=== PATIENT | male | born 1980 | race Caucasian/White ===

== ENCOUNTER 2016-12-16 22:01 | Emergency (ER) | payer OTHER ==
[~2016-12-16] VITALS: Ht 188 cm; Wt 110.0 kg
[2016-12-16 22:23] LABS: BASOPHILS % (AUTO) 0.1 % (0.0-2.0); EOSINOPHILS % (AUTO) 0.5 % (1.0-6.0); HEMATOCRIT 43.6 % (41-53); LYMPHOCYTES % (AUTO) 11.3 % (22.0-44.0); MEAN CORPUSCULAR HEMOGLOBIN 30.8 pg (26.0-34.0); MEAN CORPUSCULAR HGB CONC 32.2 G/dL (31.0-37.0); MEAN CORPUSCULAR VOLUME 96 fL (80-100); MONOCYTES # (AUTO) 0.6 K/uL (0.1-1.0); MONOCYTES % (AUTO) 3.3 % (2.0-9.0); NEUTROPHILS # (AUTO) 14.8 K/uL (1.8-7.7); NEUTROPHILS % (AUTO) 84.8 % (40.0-70.0); PLATELET COUNT (AUTO) 331 K/uL (150-450); RED BLOOD CELL COUNT(AUTO) 4.55 MIL/uL (4.50-5.90); RED CELL DISTRIBUTION WIDTH 13.7 % (11.5-14.5); WHITE BLOOD COUNT (AUTO) 17.4 K/uL (4.5-11.0)
[2016-12-16 22:32] LABS: ANION GAP 13 mmol/L (8-16); CALCIUM, TOTAL 9.6 mg/dL (8.8-10.5); CARBON DIOXIDE 26 mmol/L (22-29); CHLORIDE 98 mmol/L (98-107); CREATININE 1.18 mg/dL (0.60-1.30); GLOMERULAR FILTR. RATE CALC > 60 mL/min (>60); POTASSIUM 3.2 mmol/L (3.5-5.1); SODIUM SERUM 137 mmol/L (136-145); UREA NITROGEN, BLOOD 20 mg/dL (7-18)
[2016-12-16 22:38] LABS: ALANINE AMINOTRANSFERASE 104 U/L (12-78); ALBUMIN 4.7 g/dL (3.4-5.0); ASPARTATE AMINOTRANSFERASE 61 U/L (15-37); BILIRUBIN,TOTAL 0.6 mg/dL (0.1-1.0); TOTAL PROTEIN, SERUM 7.8 g/dL (6.4-8.2)
[2016-12-16] MEDS ORDERED: KETOROLAC TROMETHAMINE 30 MG/ML VIAL IM ONE (23:45)
[2016-12-17 00:01] VITALS: BP 132/79
== END 2016-12-17 00:12 | disposition home or self-care (01) ==
LOC: EMS 22:03
DX: R07.89 Other chest pain (principal); F17.210 Nicotine dependence, cigarettes, uncomplicated; F12.90 Cannabis use, unspecified, uncomplicated
CPT/HCPCS: 36415; 71010; 80053; 80307; 84484; 85025; 93005; 96372; 99285; J1885

== ENCOUNTER 2016-12-17 13:20 | Inpatient (IN) | payer MEDICAID, OTHER ==
[~2016-12-17] VITALS: Ht 188 cm; Wt 95.0 kg
[2016-12-17 14:25] LABS: BASOPHILS % (AUTO) 0.3 % (0.0-2.0); EOSINOPHILS % (AUTO) 0.4 % (1.0-6.0); HEMATOCRIT 41.2 % (41-53); HEMOGLOBIN 13.5 g/dL (13.5-17.5); LYMPHOCYTES # (AUTO) 1.2 K/uL (1.0-4.8); LYMPHOCYTES % (AUTO) 12.4 % (22.0-44.0); MEAN CORPUSCULAR HEMOGLOBIN 31.2 pg (26.0-34.0); MEAN CORPUSCULAR HGB CONC 32.7 G/dL (31.0-37.0); MEAN CORPUSCULAR VOLUME 95 fL (80-100); MONOCYTES # (AUTO) 0.6 K/uL (0.1-1.0); MONOCYTES % (AUTO) 6.1 % (2.0-9.0); NEUTROPHILS # (AUTO) 8.1 K/uL (1.8-7.7); NEUTROPHILS % (AUTO) 80.8 % (40.0-70.0); PLATELET COUNT (AUTO) 320 K/uL (150-450); RED BLOOD CELL COUNT(AUTO) 4.32 MIL/uL (4.50-5.90); RED CELL DISTRIBUTION WIDTH 13.2 % (11.5-14.5)
[2016-12-17 14:36] LABS: ANION GAP 14 mmol/L (8-16); CALCIUM, TOTAL 9.4 mg/dL (8.8-10.5); CARBON DIOXIDE 25 mmol/L (22-29); CHLORIDE 98 mmol/L (98-107); CREATININE 1.09 mg/dL (0.60-1.30); GLOMERULAR FILTR. RATE CALC > 60 mL/min (>60); POTASSIUM 4.1 mmol/L (3.5-5.1); SODIUM SERUM 137 mmol/L (136-145); UREA NITROGEN, BLOOD 22 mg/dL (7-18)
[2016-12-17 14:42] LABS: ALANINE AMINOTRANSFERASE 91 U/L (12-78); ALBUMIN 4.6 g/dL (3.4-5.0); ASPARTATE AMINOTRANSFERASE 54 U/L (15-37); BILIRUBIN,TOTAL 0.8 mg/dL (0.1-1.0); TOTAL PROTEIN, SERUM 7.6 g/dL (6.4-8.2)
[2016-12-17] MEDS ORDERED: LORazepam 2 MG TABLET PO ONE (15:45)
[2016-12-17] MEDS: LORazepam 2 MG TABLET PO PRN (19:34)
[2016-12-17 20:45] VITALS: BP 135/85
[2016-12-18 00:30] VITALS: BP 110/66
[2016-12-18] MEDS: LEVOTHYROXINE SODIUM 25 MCG TABLET PO SCH (06:27)
[2016-12-18 08:13] VITALS: BP 113/61
[2016-12-18 09:25] LABS: THYROID STIMULATING HORMONE 2.26 uIU/mL (0.36-3.74)
[2016-12-18] MEDS: LORazepam 2 MG TABLET PO PRN (15:07)
[2016-12-18] MEDS: QUEtiapine FUMARATE 100 MG TABLET PO SCH (16:08)
[2016-12-18 16:10] VITALS: BP 131/76
[2016-12-19 00:22] VITALS: BP 113/75
[2016-12-19] MEDS: HALOPERIDOL 5 MG TABLET PO PRN ×2 (03:33→10:40)
[2016-12-19 03:37] VITALS: BP 127/88
[2016-12-19] MEDS: LORazepam 2 MG TABLET PO PRN ×2 (04:49→10:40)
[2016-12-19] MEDS: LEVOTHYROXINE SODIUM 25 MCG TABLET PO SCH (06:13)
[2016-12-19] MEDS: VENLAFAXINE HCL 75 MG ER CAPSULE PO SCH (08:26)
[2016-12-19] MEDS: QUEtiapine FUMARATE 100 MG TABLET PO SCH ×2 (08:26→16:18)
[2016-12-19 08:42] VITALS: BP 126/69
[2016-12-19 16:14] VITALS: BP 136/74
[2016-12-19] MEDS: ZOLPIDEM TARTRATE 10 MG TABLET PO PRN (22:07)
[2016-12-20 02:42] VITALS: BP 130/90
[2016-12-20] MEDS: HALOPERIDOL 5 MG TABLET PO PRN ×2 (02:45→12:24)
[2016-12-20] MEDS: LEVOTHYROXINE SODIUM 25 MCG TABLET PO SCH (06:23)
[2016-12-20] MEDS: VENLAFAXINE HCL 75 MG ER CAPSULE PO SCH (08:21)
[2016-12-20] MEDS: QUEtiapine FUMARATE 100 MG TABLET PO SCH ×2 (08:21→16:10)
[2016-12-20 08:39] VITALS: BP 110/60
[2016-12-20] MEDS: LORazepam 2 MG TABLET PO PRN (12:24)
[2016-12-20 16:14] VITALS: BP 124/68
[2016-12-21 00:13] VITALS: BP 115/60
[2016-12-21] MEDS: ZOLPIDEM TARTRATE 10 MG TABLET PO PRN ×2 (01:51→21:11)
[2016-12-21 05:49] VITALS: BP 135/86
[2016-12-21] MEDS: HALOPERIDOL 5 MG TABLET PO PRN ×2 (05:52→16:20)
[2016-12-21] MEDS: LORazepam 2 MG TABLET PO PRN ×3 (05:52→21:11)
[2016-12-21] MEDS: LEVOTHYROXINE SODIUM 25 MCG TABLET PO SCH (06:36)
[2016-12-21 08:32] VITALS: BP 111/65
[2016-12-21] MEDS: QUEtiapine FUMARATE 100 MG TABLET PO SCH ×2 (10:01→16:19)
[2016-12-21] MEDS: VENLAFAXINE HCL 75 MG ER CAPSULE PO SCH (10:01)
[2016-12-21 16:00] VITALS: BP 130/78
[2016-12-21] MEDS ORDERED: QUEtiapine FUMARATE 200 MG TABLET PO SCH (21:00)
[2016-12-22] MEDS: LEVOTHYROXINE SODIUM 25 MCG TABLET PO SCH (06:32)
[2016-12-22 06:41] VITALS: BP 113/76
[2016-12-22] MEDS ORDERED: VENL-67 PO (08:29)
[2016-12-22] MEDS ORDERED: LEVO25TA9 PO (08:29)
[2016-12-22] MEDS ORDERED: QUET200T PO (08:29)
[2016-12-22] MEDS: VENLAFAXINE HCL 75 MG ER CAPSULE PO SCH (09:12)
== END 2016-12-22 09:50 | disposition home or self-care (01) | DRG 751 ==
LOC: EMS 13:26 → EEVIPCON 13:26 → B2S 17:20
PROVIDERS: ADMIT Psychiatry & Neurology Child & Adolescent Psychiatry; ATTEND Psychiatry & Neurology Psychiatry
DX: F33.3 Major depressive disorder, recurrent, severe with psychotic symptoms (principal); R45.851 Suicidal ideations; E03.9 Hypothyroidism, unspecified; F60.3 Borderline personality disorder; F17.200 Nicotine dependence, unspecified, uncomplicated; F12.90 Cannabis use, unspecified, uncomplicated
CPT/HCPCS: 84439; 84443; 99285; 99406; G0480

== ENCOUNTER 2016-12-23 04:32 | Inpatient (IN) | payer MEDICAID ==
[~2016-12-23] VITALS: Ht 188 cm; Wt 92.6 kg
[~2016-12-23 04:32] MED LIST: LEVO25TA9 PO; QUET200T PO; VENL-67 PO
[2016-12-23 05:21] VITALS: BP 128/76
[2016-12-23] MEDS ORDERED: LORazepam 2 MG TABLET PO PRN ×2 (05:45→06:00)
[2016-12-23] MEDS ORDERED: ZOLPIDEM TARTRATE 10 MG TABLET PO PRN (06:00)
[2016-12-23] MEDS ORDERED: HALOPERIDOL 5 MG TABLET PO PRN (06:00)
[2016-12-23] MEDS ORDERED: MAGNESIUM HYDROXIDE SUSPENSION 30 ML UDCUP PO PRN (09:00)
[2016-12-23] MEDS ORDERED: CloNIDine HCL 0.1 MG TABLET PO PRN (09:00)
[2016-12-23] MEDS ORDERED: BACITRACIN 28.4 GM OINTMENT TP PRN (09:00)
[2016-12-23] MEDS ORDERED: BENZOCAINE/MENTHOL LOZENGE [8 LOZENGES/PACKET] MM PRN (09:00)
[2016-12-23] MEDS ORDERED: ACETAMINOPHEN 325 MG TABLET PO PRN (09:00)
[2016-12-23] MEDS ORDERED: MAG HYDROX/AL HYDROX/SIMETH ES 30 ML SUSPENSION UDCUP PO PRN (09:00)
[2016-12-23] MEDS ORDERED: PETROLATUM,WHITE 71 GM JELLY TP PRN (09:00)
[2016-12-23] MEDS ORDERED: IBUPROFEN 600 MG TABLET PO PRN (09:00)
[2016-12-23] MEDS ORDERED: LOPERAMIDE HCL 2 MG CAPSULE PO PRN (09:00)
[2016-12-23] MEDS ORDERED: ALBUTEROL SULFATE HFA 90 MCG/PUFF 8 GM INHALER IH PRN (09:00)
[2016-12-23 09:18] VITALS: BP 136/75
[2016-12-23 17:01] VITALS: BP 136/78
[2016-12-23] MEDS ORDERED: QUEtiapine FUMARATE 200 MG TABLET PO SCH (21:00)
[2016-12-24] MEDS ORDERED: LEVOTHYROXINE SODIUM 25 MCG TABLET PO SCH (07:00)
[2016-12-24 07:33] LABS: CHOL/HDL RATIO 3.2 (4.2-7.3)
[2016-12-24] MEDS ORDERED: VENLAFAXINE HCL 75 MG ER CAPSULE PO SCH (09:00)
[2016-12-25 06:06] LABS: HEPATITIS Bs ANTIGEN SCREEN P Negative (Negative); HEPATITIS C AB SCREEN <0.1 s/co ratio (0.0-0.9)
== END 2016-12-24 07:15 | disposition home or self-care (01) | DRG 751 ==
LOC: 3EI 04:50
PROVIDERS: ADMIT Psychiatry & Neurology Psychiatry; ATTEND Psychiatry & Neurology Psychiatry
DX: F33.3 Major depressive disorder, recurrent, severe with psychotic symptoms (principal); E03.9 Hypothyroidism, unspecified; F60.3 Borderline personality disorder; F12.90 Cannabis use, unspecified, uncomplicated; G47.00 Insomnia, unspecified; K59.00 Constipation, unspecified; R74.0 Nonspecific elevation of levels of transaminase and lactic acid dehydrogenase [LDH]; F41.9 Anxiety disorder, unspecified; Z72.0 Tobacco use
CPT/HCPCS: 80074; 87081

== ENCOUNTER 2021-08-31 05:32 | Day surgery (SDC) | payer OTHER ==
[~2021-08-31] VITALS: Ht 188 cm; Wt 97.7 kg
[~2021-08-31 05:32] MED LIST changes: +SODIUM CHLORIDE 0.9% 1,000 ML IV ONE
[2021-08-31] MEDS ORDERED: LIDOCAINE 2% 30 ML JELLY TP ONE (05:33)
[2021-08-31] MEDS ORDERED: BENZOCAINE 20% 50 MCG/SPRAY 57 GM TP ONE (05:33)
[2021-08-31] MEDS ORDERED: LIDOCAINE 4% 50 ML SOLUTION TP ONE (05:33)
[2021-08-31] MEDS ORDERED: ALBUTEROL SULFATE 2.5 MG/0.5 ML NEB SOLUTION NEB ONE (05:33)
[2021-08-31 06:36] LABS: COVID AG,FIA SOURCE NASOPHARYNGEAL
[2021-08-31] MEDS ORDERED: SODIUM CHLORIDE 0.9% 1,000 ML ONE (06:40)
[2021-08-31] MEDS ORDERED: FINA-27 PO (07:08)
[2021-08-31] MEDS ORDERED: ATOR10TA84 PO (07:08)
[2021-08-31] MEDS ORDERED: ATEN-72 PO (07:08)
[2021-08-31] MEDS ORDERED: MIDAZOLAM HCL 5 MG/ML VIAL ONE (07:33)
[2021-08-31] MEDS ORDERED: FentaNYL CITRATE PF 100 MCG/2 ML VIAL ONE (07:33)
[2021-08-31] MEDS ORDERED: MethylPREDNISolone SOD SUCC 125 MG/2 ML VIAL IVP ONE (08:15)
[2021-08-31] MEDS ORDERED: MethylPREDNISolone SOD SUCC 125 MG/2 ML VIAL ONE (08:18)
[2021-08-31] MEDS ORDERED: OXYGEN THERAPY IH SCH (20:00)
== END 2021-08-31 09:50 | disposition home or self-care (01) ==
LOC: SURGERY 05:32
PROVIDERS: ATTEND Internal Medicine Critical Care Medicine
DX: R05.3 Chronic cough (principal); R06.2 Wheezing; R04.2 Hemoptysis; R59.1 Generalized enlarged lymph nodes; J34.89 Other specified disorders of nose and nasal sinuses; J38.4 Edema of larynx; B37.0 Candidal stomatitis; I10 Essential (primary) hypertension; E03.9 Hypothyroidism, unspecified; Z20.822 Contact with and (suspected) exposure to COVID-19; Z79.899 Other long term (current) drug therapy
CPT/HCPCS: 31623; 31624; 71045; 87015; 87070; 87101; 87206; 87220; 87426; 88112; 88184; 88185; 88312; C9803; J2250; J2930; J3010; J7030; J7613; Z7610